=== PATIENT | female | born 1965 | race American Indian/Alaskan Native ===

== ENCOUNTER 2017-04-09 14:56 | Outpatient (CLI) | payer OTHER ==
--- NOTE | 2017-04-10 11:42 | Vascular Lab Report ---
LOWER EXTREMITY VENOUS DUPLEX: REASON FOR EXAM: History of deep venous thrombosis. COMMENTS ON THE RIGHT: All veins visualized are freely compressible without evidence of internal echogenicity. Flow is spontaneous and phasic throughout. COMMENTS ON THE LEFT: All veins visualized are freely compressible without evidence of internal echogenicity. Flow is spontaneous and phasic throughout. IMPRESSION: No evidence of acute or chronic deep venous thrombosis in either lower extremity.
== END 2017-04-09 14:57 | disposition home or self-care (01) ==
LOC: SPVWC 14:56
PROVIDERS: ATTEND Internal Medicine Hematology & Oncology
DX: R60.9 Edema, unspecified (principal); D68.69 Other thrombophilia; Z86.718 Personal history of other venous thrombosis and embolism
CPT/HCPCS: 93970